=== PATIENT | male | born 1955 | race Caucasian/White ===

== ENCOUNTER 2021-11-10 20:46 | Emergency (ER) | payer OTHER, SELFPAY ==
--- NOTE | 2021-11-10 | ECG_ITS ---
Test Reason : CHEST PAIN Blood Pressure : / mmHG Vent. Rate : 063 BPM Atrial Rate : 063 BPM P-R Int : 158 ms QRS Dur : 094 ms QT Int : 400 ms P-R-T Axes : 106 156 143 degrees QTc Int : 409 ms Suspect limb lead reversal, interpretation assumes no reversal Normal sinus rhythm Left posterior fascicular block Inferior infarct , age undetermined Abnormal ECG No previous ECGs available Referred By: Faviola Kay Electronically Signed By:EJ CASTRO MD
--- NOTE | ~2021-11-10 | CT_ITS ---
EXAMINATION: CT CHEST, ABDOMEN AND PELVIS WITH CONTRAST CLINICAL INFORMATION: AAA with chest pain, stroke and weakness COMPARISON: No pertinent prior studies are available for comparison. TECHNIQUE: Multidetector volumetric imaging was performed from the thoracic inlet through the pubic symphysis following administration of 100 mL of Omnipaque 350. Sagittal and coronal reformatted images were obtained on the technologist's workstation. This CT examination was performed using dose optimization techniques as appropriate, variously including the following: *Automated exposure control *Adjustment of mA and/or kV according to patient size (this includes techniques or standardized protocols for targeted exams where dose is matched to indication/reason for exam; i.e. extremities or head) *Use of iterative reconstruction technique DLP: 2707 mGy-cm FINDINGS: CHEST: Lung: The lungs are clear without focal opacity or nodule. Mediastinum: There is dilatation of the ascending aorta which measures a maximum of 4.7 cm transverse plane at the level of the pulmonary artery. No dissection is seen. 2 vessel branching pattern of the arch is seen with common trunk involving the left carotid and right subclavian. No hilar or mediastinal lymphadenopathy. Pericardium/Pleura: No significant effusion. No pleural mass or thickening. Chest Wall/Axilla: Unremarkable ABDOMEN/PELVIS: Peritoneal Space: No significant free air or free fluid identified. Liver, Gallbladder, Biliary Tree: Status post cholecystectomy with some gas in the biliary tree. The liver is normal in size, shape, and attenuation. No focal hepatic lesion or biliary ductal dilatation is present. Pancreas: Unremarkable Spleen: Unremarkable. A small splenule is present. Adrenal Glands: Unremarkable Kidneys and Ureters: The kidneys are normal in size, shape, and attenuation. Bilateral renal cysts are present, right greater than left. The largest cyst is at the right lower pole measures 5.8 x 3.8 cm. No renal calculi are seen. No hydronephrosis. No solid renal masses. Bladder: Unremarkable Gastrointestinal Tract: The small and large bowel are unremarkable. The appendix is unremarkable. Abdominal Wall: No significant hernia is appreciated. Lymph Nodes: No lymphadenopathy. Vascular: The aorta appears normal.. The IVC appears unremarkable. PELVIC VISCERA: There is mild BPH. Seminal vesicles appear normal. OSSEUS STRUCTURES: Unremarkable degenerative changes are noted in the spine. No bony destructive lesions are seen. CT/CT abdomen pelvis w con IMPRESSION: Ascending aortic aneurysm 4.7 cm. Upper limits of normal for patient of 65 years of age would be 4.2 cm. No evidence of an aortic dissection. Incidental findings include benign Bosniak class I renal cysts which need no further imaging or follow-up. BPH. Normal aortic diameters (in millimeters) Ascending aorta: 31+0.16 x age. Descending aorta: 21+0.16 x age. Reference: [employer] Cardiovascular J 2006 November; 40 (3): 175-178 . Fleischner guidelines were followed.
--- NOTE | ~2021-11-10 | CT_ITS ---
EXAMINATION: CT CHEST, ABDOMEN AND PELVIS WITH CONTRAST CLINICAL INFORMATION: AAA with chest pain, stroke and weakness COMPARISON: No pertinent prior studies are available for comparison. TECHNIQUE: Multidetector volumetric imaging was performed from the thoracic inlet through the pubic symphysis following administration of 100 mL of Omnipaque 350. Sagittal and coronal reformatted images were obtained on the technologist's workstation. This CT examination was performed using dose optimization techniques as appropriate, variously including the following: *Automated exposure control *Adjustment of mA and/or kV according to patient size (this includes techniques or standardized protocols for targeted exams where dose is matched to indication/reason for exam; i.e. extremities or head) *Use of iterative reconstruction technique DLP: 2707 mGy-cm FINDINGS: CHEST: Lung: The lungs are clear without focal opacity or nodule. Mediastinum: There is dilatation of the ascending aorta which measures a maximum of 4.7 cm transverse plane at the level of the pulmonary artery. No dissection is seen. 2 vessel branching pattern of the arch is seen with common trunk involving the left carotid and right subclavian. No hilar or mediastinal lymphadenopathy. Pericardium/Pleura: No significant effusion. No pleural mass or thickening. Chest Wall/Axilla: Unremarkable ABDOMEN/PELVIS: Peritoneal Space: No significant free air or free fluid identified. Liver, Gallbladder, Biliary Tree: Status post cholecystectomy with some gas in the biliary tree. The liver is normal in size, shape, and attenuation. No focal hepatic lesion or biliary ductal dilatation is present. Pancreas: Unremarkable Spleen: Unremarkable. A small splenule is present. Adrenal Glands: Unremarkable Kidneys and Ureters: The kidneys are normal in size, shape, and attenuation. Bilateral renal cysts are present, right greater than left. The largest cyst is at the right lower pole measures 5.8 x 3.8 cm. No renal calculi are seen. No hydronephrosis. No solid renal masses. Bladder: Unremarkable Gastrointestinal Tract: The small and large bowel are unremarkable. The appendix is unremarkable. Abdominal Wall: No significant hernia is appreciated. Lymph Nodes: No lymphadenopathy. Vascular: The aorta appears normal.. The IVC appears unremarkable. PELVIC VISCERA: There is mild BPH. Seminal vesicles appear normal. OSSEUS STRUCTURES: Unremarkable degenerative changes are noted in the spine. No bony destructive lesions are seen. CT/CT chest w con IMPRESSION: Ascending aortic aneurysm 4.7 cm. Upper limits of normal for patient of 65 years of age would be 4.2 cm. No evidence of an aortic dissection. Incidental findings include benign Bosniak class I renal cysts which need no further imaging or follow-up. BPH. Normal aortic diameters (in millimeters) Ascending aorta: 31+0.16 x age. Descending aorta: 21+0.16 x age. Reference: [employer] Cardiovascular J 2005; 40 (3): 175-178 . Fleischner guidelines were followed.
--- NOTE | ~2021-11-10 | XR_ITS ---
EXAMINATION: PORTABLE CHEST 1 VIEW CLINICAL INFORMATION: cp . COMPARISON: No recent pertinent prior studies are available for comparison. TECHNIQUE: Portable frontal view of the chest was obtained. FINDINGS: The lungs are well expanded. No focal infiltrate, effusion, edema, or pneumothorax. Cardiac and mediastinal silhouettes are within normal limits for size with a tortuous aorta. No acute bony abnormality seen. XR/XR chest 1V IMPRESSION: No evidence of acute disease.
--- NOTE | ~2021-11-10 | CT_ITS ---
CT ANGIOGRAM NECK AND HEAD CLINICAL INFORMATION: Stroke, weakness COMPARISON: MRI 04/15/2018 TECHNIQUE: Initial noncontrast head CT was performed. Test bolus sequences followed by intravenous administration 100 mL of Omnipaque 350. Helical imaging was performed in the axial plane from the thoracic inlet to the skull vertex. Delayed postcontrast imaging of the head was also performed. The data was processed at the dairy technologist's workstation for generation of MIP sequences. Angled MIPs and volume rendered reformatted images were also generated at an offline 3D workstation. Stenoses are assessed in accordance with NASCET criteria unless otherwise indicated. DOSE LOWERING TECHNIQUES: This CT examination was performed using dose optimization techniques as appropriate, variously including the following: - Automated exposure control - Adjustment of mA and/or kV according to patient size (this includes techniques or standardized protocols for targeted exams were dose is matched to indication/reason for exam; i.e. extremities or head) - Use of iterative reconstruction technique DLP: 3730 mGy-cm FINDINGS: Neck CTA: Imaged portion of the ascending aorta appears dilated to approximately 4.5 cm. There is common origin of the brachiocephalic and left common carotid arteries off the aortic arch. No evidence of stenosis at the branch origins. Assessment of the vasculature in the neck is somewhat limited due to motion artifact. Both vertebral arteries are widely patent throughout their extracranial cervical course. There is minimal calcification along the proximal left internal carotid artery without significant narrowing. Otherwise normal appearance of the common and internal carotid arteries without focal stenosis. Brain CTA: Normal appearance of the intradural vertebral arteries, and the left vertebral artery is dominant. Normal appearance of the basilar and superior cerebellar arteries. Normally opacified posterior communicating arteries. Normal appearance of the posterior cerebral arteries bilaterally. Normal appearance of the intradural internal carotid arteries without focal stenosis. Normal appearance of the anterior cerebral and middle cerebral arteries without focal occlusion or stenosis. Normal anterior communicating artery. Normal arborization of the middle cerebral arteries. CT Head: Regions of hypoattenuation in the lateral left frontal lobe and right temporo-occipital region are more suggestive of chronic infarct. No intracranial mass, hemorrhage, extra-axial collection, or midline shift. The mitchell-white matter differentiation is otherwise preserved. There is moderate periventricular white matter hypoattenuation which may reflect sequelae of multiple sclerosis as per prior clinical history. No pathologic intra-axial enhancement or regional oligemia. No hydrocephalus. Slight mucosal thickening of the right maxillary sinus. The mastoid air cells are well-aerated. CT Neck: The thyroid gland and remaining cervical soft tissues are normal in appearance. There is degenerative change at the atlantodens articulation. There is disc space narrowing and endplate osteophyte formation of the lower cervical spine, most severe at C5-C6. Upper Chest: No abnormalities in the visualized lung apices or upper mediastinum. CT/CT angio head neck IMPRESSION: 1. No hemodynamically significant stenosis in the major arteries of the neck. No large vessel occlusion or significant stenosis in the intracranial circulation. 2. Regions of infarct in the left frontal lobe and right temporoparietal region, more suggestive of chronic findings, though this would be more definitively assessed with MRI. 3. Periventricular white matter hypoattenuation may reflect sequelae of multiple sclerosis as per prior clinical history. 4. Dilated visualized ascending aorta to approximately 4.5 cm.
[2021-11-10 20:52] VITALS: BP 183/102; BP 210/118; PULSE 66; RESP 18; TEMP 36.9; O2SAT 98; O2SAT 99; BMI 28.8
[2021-11-10 21:29] LABS: MANUAL DIFF FLAG NO
[2021-11-10 21:30] LABS: Basophils Percent Auto 0.1 % (0-2); Eosinophils Absolute Auto 0.1 X10*3/uL (0.0-0.4); Hematocrit 35.8 % (42.0-52.0); Imm Gran Abs Auto 0.04 X10*3/uL (0.00-0.03); Imm Gran Pct Auto 0.3 % (0.0-0.4); Lymphocytes Absolute Auto 2.2 X10*3/uL (1.2-4.9); Lymphocytes Percent Auto 17.7 % (20-40); Mean Corpuscular HGB Conc 33.5 g/dl (31.0-36.0); Mean Corpuscular Hemoglobin 30.3 pg (27.0-33.0); Mean Corpuscular Volume 90.4 fL (80.0-98.0); Mean Platelet Volume 10.6 fL (9.4-12.4); Monocytes Absolute Auto 1.1 X10*3/uL (0.1-1.2); Monocytes Percent Auto 8.7 % (2-11); Neutrophils Absolute Auto 9.1 x10*3/uL (2.0-8.3); Neutrophils Percent Auto 72.2 % (45-73); Platelet Count 186 X10*3/uL (160-400); Red Blood Count 3.96 X10*6/uL (4.60-5.80); White Blood Count 12.6 X10*3/uL (4.8-10.8)
--- NOTE | 2021-11-10 21:36 | ED.NEUROSD ---
HPI - Neuro Symptoms/Deficit General Chief Complaint: Neuro Symptoms/Deficit Stated Complaint: CHEST DYSCOMFORT X'S 2DAYS,HIGH BP 210/130 PER EMS Time Seen by Provider: 11/10/21 21:25 History of Present Illness HPI Narrative: Patient is a 65-year-old male with a history of CVA 2 months ago. Patient claims after the stroke he has no residual weakness on the left side. Patient complaining of left-sided weakness starting approximately 2 days ago. Fairly abrupt in onset. Patient also complaining of chest pain that has been constant. It is associated with shortness of breath is not associated with diaphoresis. It is not associated with exertion. It is constant. He has a long history of hypertension history of smoking quit many years ago. History of abdominal aortic aneurysms. Patient claims when he measured his blood pressure his blood pressure was elevated. He has been compliant with his medication this medication has not been changed. Patient took aspirin prior to arrival. Normally takes. For high blood pressure has been compliant with his medication. Patient not on blood thinners. No fever no chills no coughing or congestion or upper respiratory symptoms. No diaphoresis. Related Data Home Medications Medication Instructions Recorded Confirmed carvedilol 25 mg tablet 25 mg PO BID 11/10/21 11/10/21 duloxetine 60 mg capsule,delayed 60 mg PO DAILY 11/10/21 11/10/21 release gabapentin 600 mg tablet 600 mg PO BID 11/10/21 11/10/21 melatonin 10 mg tablet 10 mg PO BEDTIME PRN 11/10/21 11/10/21 olanzapine 5 mg tablet 5 mg PO DAILY 11/10/21 11/10/21 pantoprazole 40 mg intravenous mg IV 11/10/21 solution valsartan 160 mg tablet 160 mg PO DAILY 11/10/21 11/10/21 Allergies Allergy/AdvReac Type Severity Reaction Status Date / Time carbamazepine Allergy Unknown Uncoded 06/25/19 00:00 contrast media Allergy Unknown Uncoded 06/25/19 00:00 doxycycline Allergy Unknown Uncoded 06/25/19 00:00 lyrica Allergy Unknown Uncoded 06/25/19 00:00 nonsteroidal anti Allergy Unknown Uncoded 06/25/19 00:00 inflammatory sulfa Allergy Unknown Uncoded 06/25/19 00:00 zantac Allergy Unknown Uncoded 06/25/19 00:00 Review of Systems Review of Systems: No fever no chills no coughing or congestion or upper respiratory symptoms no diaphoresis positive weakness the left side per patient. Positive chest pain. Yes all other systems are reviewed and are negative [facility] Past Medical History Attestation statement: The following information was validated with the patient. Social History Social History Advance Directives: No Advance Directives Information Provided: No Physical Exam Vital Signs: Vital Signs: Last Vital Signs Temp 97.9 F 11/11/21 01:32 Pulse 99 11/11/21 01:32 Resp 16 11/11/21 01:32 BP 191/82 H 11/11/21 01:32 Pulse Ox 100 11/11/21 01:32 Oxygen Flow Rate 2 11/10/21 20:52 BMI result Body Mass Index 28.8 Appearance: Alert. Oriented X3. No acute distress. Eyes: Pupils equal, round and reactive to light. ENT: Pharynx normal. Neck: Normal inspection. Neck supple. No lymph nodes noted. No crepitus CVS: Normal heart rate and rhythm. Pulses normal. Normal S1 and S2 Respiratory: No respiratory distress. Breath sounds normal. No Wheezing. No rales Abdomen: Soft and nontender. No rigidity. No distention. good BS x4 Skin: Skin warm and dry. Normal skin color. Normal skin turgor. Extremities: No lower extremity edema. Neurovascular intact to all extremities. No Lacerations. No Rash Neuro: Oriented X 3. No motor deficit. No sensory deficit. Moving all extermities. No slurred speech MDM - Neuro Symptoms/Deficit MDM Narrative Medical decision making narrative: EKG showed a sinus pattern heart rate 60 ID QRS QTC within normal limits no acute ST segment elevation CTA of the head was grossly negative for any acute evidence of vessel occlusion. CT of the chest abdomen pelvis did not show any acute evidence of dissection. Patient abdominal aortic aneurysm is 4.7 cm in size. Per patient this is chronic. He is being followed on an outpatient basis. He has no distress. His cardiac enzyme was negative. His repeat blood pressure is 191/82. Patient also complaining of left-sided weakness. Although the NIH stroke scale was 0. Will admit for observation overnight. In stable condition. Patient refused a 2nd set of cardiac enzyme wants to leave at this point. Understood the risk of not having a 2nd set enzymes. Patient's EKG did not show any acute ST segment elevations. His 1st set of troponin was 27. Patient states understanding is leaving against advice. In stable condition. Lab Data Result diagrams: 11/10/21 21:21 11/10/21 21:21 Labs: Lab Results 11/10/21 11/10/21 11/10/21 Range/Units 21:21 21:21 21:21 WBC 12.6 H (4.8-10.8) X10*3/uL RBC 3.96 L (4.60-5.80) X10*6/uL Hgb 12.0 L (14.0-18.0) g/dl Hct 35.8 L (42.0-52.0) % MCV 90.4 (80.0-98.0) fL MCH 30.3 (27.0-33.0) pg MCHC 33.5 (31.0-36.0) g/dl RDW 13.0 (11.0-16.0) % Plt Count 186 (160-400) X10*3/uL MPV 10.6 (9.4-12.4) fL Immature Gran % (Auto) 0.3 (0.0-0.4) % Neut % (Auto) 72.2 (45-73) % Lymph % (Auto) 17.7 L (20-40) % [place] % (Auto) 8.7 (2-11) % Eos % (Auto) 1.0 (0-4) % Baso % (Auto) 0.1 (0-2) % Lymph # (Auto) 2.2 (1.2-4.9) X10*3/uL [place] # (Auto) 1.1 (0.1-1.2) X10*3/uL Eos # (Auto) 0.1 (0.0-0.4) X10*3/uL Baso # (Auto) 0.0 (0.0-0.2) X10*3/uL Abs Immat Gran (auto) 0.04 H (0.00-0.03) X10*3/uL Absolute Neuts (auto) 9.1 H (2.0-8.3) x10*3/uL Absolute Nucleated RBC 0.000 (0.0-0.012) X10*3/uL Nucleated RBC % (auto) 0.0 (0.0-0.2) /100WBC PT 11.2 (9.9-13.0) SEC INR 1.0 (0.9-1.1) APTT 30.3 (24.1-38.0) SEC Sodium 141 (135-145) mmol/L Potassium 3.5 (3.3-5.1) mmol/L Chloride 102 (96-108) mmol/L Carbon Dioxide 31 H (22-29) mmol/L Anion Gap 12 (12-20) BUN 18 H (9-16) mg/dL Creatinine 0.79 (0.5-1.4) mg/dL Estim Creat Clear Calc 99.5 Estimated GFR > 60 Random Glucose 99 (60-115) mg/dL Calcium 8.9 (8.4-10.2) mg/dL Total Bilirubin 0.6 (0.0-1.0) mg/dL AST 15 (5-37) U/L ALT 16 (0-40) U/L Alkaline Phosphatase 82 (39-117) U/L Troponin I High Sens (<3.5-35.0) ng/L B-Natriuretic Peptide (<100) pg/mL Total Protein 5.9 L (6.5-8.0) g/dL Albumin 3.6 (3.5-5.0) g/dL Urine Color Urine Appearance Urine pH (5.0-8.0) Ur Specific [place] (1.005-1.025) Urine Protein (NEG-TRACE) MG/DL Urine Glucose (UA) (NEG) MG/DL Urine Ketones (NEG) MG/DL Urine Blood (NEG) Urine Nitrite (NEG) Ur Leukocyte Esterase (NEG) Urine RBC (0) /HPF Urine WBC (0-4) /HPF Ur Squamous Epith Cells /LPF Urine Bacteria /LPF COVID-19 (CHETAN) (Negative) COVID-19 Clin Com 11/10/21 11/10/21 11/11/21 Range/Units 21:21 21:50 01:35 WBC (4.8-10.8) X10*3/uL RBC (4.60-5.80) X10*6/uL Hgb (14.0-18.0) g/dl Hct (42.0-52.0) % MCV (80.0-98.0) fL MCH (27.0-33.0) pg MCHC (31.0-36.0) g/dl RDW (11.0-16.0) % Plt Count (160-400) X10*3/uL MPV (9.4-12.4) fL Immature Gran % (Auto) (0.0-0.4) % Neut % (Auto) (45-73) % Lymph % (Auto) (20-40) % [place] % (Auto) (2-11) % Eos % (Auto) (0-4) % Baso % (Auto) (0-2) % Lymph # (Auto) (1.2-4.9) X10*3/uL [place] # (Auto) (0.1-1.2) X10*3/uL Eos # (Auto) (0.0-0.4) X10*3/uL Baso # (Auto) (0.0-0.2) X10*3/uL Abs Immat Gran (auto) (0.00-0.03) X10*3/uL Absolute Neuts (auto) (2.0-8.3) x10*3/uL Absolute Nucleated RBC (0.0-0.012) X10*3/uL Nucleated RBC % (auto) (0.0-0.2) /100WBC PT (9.9-13.0) SEC INR (0.9-1.1) APTT (24.1-38.0) SEC Sodium (135-145) mmol/L Potassium (3.3-5.1) mmol/L Chloride (96-108) mmol/L Carbon Dioxide (22-29) mmol/L Anion Gap (12-20) BUN (9-16) mg/dL Creatinine (0.5-1.4) mg/dL Estim Creat Clear Calc Estimated GFR Random Glucose (60-115) mg/dL Calcium (8.4-10.2) mg/dL Total Bilirubin (0.0-1.0) mg/dL AST (5-37) U/L ALT (0-40) U/L Alkaline Phosphatase (39-117) U/L Troponin I High Sens 27.7 (<3.5-35.0) ng/L B-Natriuretic Peptide 133 H (<100) pg/mL Total Protein (6.5-8.0) g/dL Albumin (3.5-5.0) g/dL Urine Color YELLOW Urine Appearance CLEAR Urine pH 6.5 (5.0-8.0) Ur Specific [place] <= 1.005 (1.005-1.025) Urine Protein NEG (NEG-TRACE) MG/DL Urine Glucose (UA) NEG (NEG) MG/DL Urine Ketones NEG (NEG) MG/DL Urine Blood TRACE (NEG) Urine Nitrite NEG (NEG) Ur Leukocyte Esterase NEG (NEG) Urine RBC 0-2 (0) /HPF Urine WBC 0-2 (0-4) /HPF Ur Squamous Epith Cells NONE /LPF Urine Bacteria NONE /LPF COVID-19 (CHETAN) Negative (Negative) COVID-19 Clin Com See Note NIH Stroke Scale Internal: Initial- Upon Arrival Level of Consciousness: Alert Level of Consciousness Questions: Answers both questions correctly Level of Consciousness Commands: Performs both tasks correctly Best Gaze: Normal Visual: No visual loss Facial Palsy: Normal Motor Arm (Right): No drift Motor Arm (Left): No drift Motor Leg (Right): No drift Motor Leg (Left): No drift Limb Ataxia: Absent Sensory: Normal Best Language: No aphasia Dysarthia: Normal Extinction and Inattention: No abnormality Score: 0 Discharge Plan Discharge Clinical Impression: Chest pain Patient Disposition: Left Against Medical Advice Instructions: Chest Pain (ED), Ischemic Stroke (DC) Prescriptions: No Action carvedilol 25 mg Tablet 25 mg PO BID 0RF Rx Instructions: must administer with a meal/food gabapentin 600 mg Tablet 600 mg PO BID 0RF olanzapine 5 mg Tablet 5 mg PO DAILY 0RF pantoprazole 40 mg Recon Soln IV 0RF valsartan 160 mg Tablet 160 mg PO DAILY 0RF duloxetine 60 mg Capsule,Delayed Release(Dr/Ec) 60 mg PO DAILY 0RF melatonin 10 mg Tablet 10 mg PO BEDTIME PRN (Reason: Insomnia) 0RF Referrals: Rafi Oliva [Primary Care Provider] - (Only 1 set of cardiac enzyme was done. Worsened chest pain please come back.)
[2021-11-10 21:41] LABS: Prothrombin Time 11.2 SEC (9.9-13.0)
[2021-11-10 21:43] LABS: Partial Thromboplastin Time 30.3 SEC (24.1-38.0)
[2021-11-10 21:48] LABS: Alanine Aminotransferase 16 U/L (0-40); Albumin Level 3.6 g/dL (3.5-5.0); Alkaline Phosphatase 82 U/L (39-117); Anion Gap 12 (12-20); Aspartate Amino Transferase 15 U/L (5-37); Bilirubin Total 0.6 mg/dL (0.0-1.0); Blood Urea Nitrogen 18 mg/dL (9-16); Calcium 8.9 mg/dL (8.4-10.2); Carbon Dioxide 31 mmol/L (22-29); Chloride 102 mmol/L (96-108); Creatinine Clr Calc Pharmacy 99.5; Estimated Glomerular Filt Rate > 60; Glucose Random 99 mg/dL (60-115); Potassium 3.5 mmol/L (3.3-5.1); Sodium 141 mmol/L (135-145); Total Protein 5.9 g/dL (6.5-8.0)
[2021-11-10 21:53] LABS: B Type Natriuretic Peptide 133 pg/mL (<100); Troponin-I High Sensitivity 27.7 ng/L (<3.5-35.0)
[2021-11-10 22:32] LABS: COVID-19 Test Negative (Negative)
[2021-11-10] MEDS: methylPREDNISolone Sod Succ 125 MG/2 ML VIAL IVPUSH (23:42)
[2021-11-10] MEDS: diphenhydrAMINE HCL 50 MG/ML VIAL 25 MG IVPUSH (23:42)
[2021-11-11] VITALS: BP 169/92; PULSE 68; RESP 16; TEMP 36.9; O2SAT 95
[2021-11-11] MEDS: iohexoL 350 MG/ML 100 ML INFUS..BTL IV (00:21)
[2021-11-11] MEDS: HYDROmorphone HCl 0.5 MG/0.5 ML SYRINGE IVPUSH (00:28)
[2021-11-11 01:32] VITALS: BP 191/82; PULSE 99; RESP 16; TEMP 36.6; O2SAT 100
[2021-11-11 01:40] LABS: Appearance Urine CLEAR; Color Urine YELLOW; Glucose Urine UA NEG (NEG); Leukocyte Esterase Urine NEG (NEG); Nitrite Urine NEG (NEG); PH 6.5 (5.0-8.0); Specific Gravity - Urine <= 1.005 (1.005-1.025); UACC Culture Trigger NO; Urine Blood TRACE (NEG); Urine Ketones NEG (NEG); Urine Protein NEG (NEG-TRACE)
[2021-11-11 01:48] LABS: RBC Urine 0-2 /HPF (0); WBC Urine 0-2 /HPF (0-4)
--- NOTE | 2021-11-11 03:14 | PC.NURSE ---
Patient left AMA at 0300. Patient educated regarding risks of leaving. Patient refused to sign AMA form. IV removed, patient declined discharge paperwork and left.
[2021-11-11 03:18] LABS: Troponin-I High Sensitivity 24.5 ng/L (<3.5-35.0)
== END 2021-11-11 03:16 | disposition left against medical advice (07) ==
PROVIDERS: Emergency Provider Emergency Medicine Emergency Medical Services; PCP Internal Medicine
DX: R07.89 Other chest pain (principal); I10 Essential (primary) hypertension; I63.9 Cerebral infarction, unspecified; R29.700 NIHSS score 0; R06.02 Shortness of breath; Z86.73 Personal history of transient ischemic attack (TIA), and cerebral infarction without residual deficits; Z79.899 Other long term (current) drug therapy; Z20.822 Contact with and (suspected) exposure to COVID-19
CPT/HCPCS: 36415; 70496; 70498; 71045; 71260; 74177; 80053; 81001; 83880; 84484; 85025; 85610; 85730; 87635; 93005; 96365; 96375; 99283; 99284; J1170; J1200; J2930; Q9967